=== PATIENT | male | born 1995 | race Caucasian/White ===

== ENCOUNTER 2024-09-20 19:34 | Emergency (ER) | payer BC ==
--- NOTE | 2024-09-20 20:43 | RAD REPORT ---
EXAMINATION: TWO VIEW CHEST XR CLINICAL INDICATION: Male, 28 years old. [facility] MAIN COUGH Bed Name: 13 TECHNIQUE: 2 view radiographs of the chest were performed. COMPARISON: No prior exam. FINDINGS: The lungs are well inflated and clear. No pneumothorax or sizable effusion. The heart is normal in si ze. Mediastinal contours are unremarkable. IMPRESSION: No acute or significant abnormalities.
[2024-09-20] MEDS ORDERED: ONDANSETRON 4 MG (ODT) TAB ONE (20:44)
[2024-09-20] MEDS ORDERED: IBUPROFEN 400 MG TAB ONE (20:44)
[2024-09-20] MEDS ORDERED: BENZONATATE 100 MG CAP PO ONE (20:44)
[2024-09-20 21:36] LABS: SARS-CoV-2 Antigen CONTROL BLUE LINE VIS/BG OK; SARS-CoV-2 Antigen Rapid Res Negative (Negative)
--- NOTE | 2024-09-20 21:46 | ER ---
Nurse's Notes [facility] Name: Gunnar Martinez Age: 28 yrs Sex: Male : 1995 Arrival Date: 09/20/2024 Time: 19:34 Bed 13 Private MD: Diagnosis: Influenza due to identified novel influenza A virus with other respiratory manifestations Presentation: 09/20 19:45 Chief complaint: Patient states: cough, fever, nausea and vomiting, and chest pain that cm10 is worse with inspiration onset this morning. Coronavirus screen: Client denies travel out of the [place] in the last 14 days. Ebola Screen: Patient denies travel to an Ebola-affected area in the 21 days before illness onset. No symptoms or risks identified at this time. Initial Sepsis Screen: Does the patient meet any 2 criteria? HR > 90 bpm. No. Patient's initial sepsis screen is negative. Does the patient have a suspected source of infection? No. Patient's initial sepsis screen is negative. Risk Assessment: Do you want to hurt yourself or someone else? Patient reports no desire to harm self or others. Onset of symptoms was September 20, 2024. 19:45 Method Of Arrival: Ambulatory cm10 19:45 Acuity: [place] 4 cm10 Triage Assessment: 19:47 General: Appears in no apparent distress. uncomfortable, Behavior is calm, cooperative. cm10 Neuro: No deficits noted. Level of Consciousness is awake, alert, obeys commands, Oriented to person, place, time, situation, Appropriate for age. Respiratory: No deficits noted. Airway is patent Respiratory effort is even, unlabored, Respiratory pattern is regular, symmetrical. Historical: - Allergies: 19:46 No Known Allergies; cm10 - Home Meds: 19:46 fenofibrate oral [Active]; cm10 - PMHx: 19:46 Herniated Disc; Elevated Triglycerides; Neuropathy; cm10 - Immunization history:: Adult Immunizations up to date. - Infectious Disease History:: Denies. - Social history:: Smoking status: Patient denies any tobacco usage or history of. Screenin:00 [facility] ED Fall Risk Assessment (Adult) History of falling in the last 3 months, mt4 including since admission No falls in past 3 months (0 pts) Confusion or Disorientation No (0 pts) Intoxicated or Sedated No (0 pts) Impaired Gait No (0 pts) Mobility Assist Device Used No (0 pt) Altered Elimination No (0 pt) Score/Fall Risk Level 0 - 2 = Low Risk. Abuse screen: Denies injuries from another. Nutritional screening: No deficits noted. Tuberculosis screening: No symptoms or risk factors identified. Exposure risk/Travel Screening: None identified. Assessment: 20:00 General: Appears in no apparent distress. comfortable, Behavior is calm, cooperative, mt4 appropriate for age. Pain: Denies pain. Neuro: Level of Consciousness is awake, alert, obeys commands, Oriented to person, place, time, situation, Sponsorship Coordinator are equal bilaterally Moves all extremities. Gait is steady, Speech is normal, Facial symmetry appears normal. Cardiovascular: Capillary refill < 3 seconds. Respiratory: Reports cough that is non-productive, Airway is patent Respiratory effort is even, unlabored, Respiratory pattern is regular, symmetrical. GI: Abdomen is non-distended. : Denies burning with urination. Musculoskeletal: Capillary refill < 3 seconds, Range of motion: intact in all extremities. 22:26 General: Appears in no apparent distress. comfortable, Behavior is calm, cooperative, mt4 appropriate for age. Respiratory: Airway is patent. Vital Signs: 19:45 BP 123 / 70; Pulse 111; Resp 18; Temp 99; Pulse Ox 100% ; Weight 117.93 kg; Height 6 cm10 ft. 5 in. ; Pain 7/10; 20:14 BP 118 / 70; Pulse 108; Resp 19; Temp 98.9(O); Pulse Ox 100% ; mt4 21:00 BP 109 / 62; Pulse 99; Resp 18; Pulse Ox 94% on R/A; mt4 22:25 BP 116 / 57; Pulse 90; Resp 16; Pulse Ox 98% on R/A; mt4 19:45 Body Mass Index 30.83 (117.93 kg, 195.58 cm) cm10 19:45 Pain Scale: Adult cm10 [place] Coma Score: 20:00 Eye Response: spontaneous(4). Motor Response: obeys commands(6). Verbal Response: mt4 oriented(5). Total: 15. ED Course: 19:36 Patient arrived in ED. jj6 19:45 Todd Smith PA is PHCP. cp 19:45 Keith Adames MD is Attending Physician. cp 19:46 Triage completed. cm10 19:47 Arm band placed on right wrist. Patient placed in an exam room, on a stretcher. cm10 20:00 No apparent distress. Resting quietly. mt4 20:00 Patient has correct armband on for positive identification. Bed in low position. Call mt4 light in reach. Side rails up X 1. Provided Education on: meds and labs . Client placed on continuous cardiac and pulse oximetry monitoring. NIBP monitoring applied. Door closed. Lights dimmed. Assisted to bathroom. 20:00 No provider procedures requiring assistance completed. Patient maintains SpO2 mt4 saturation greater than 95% on room air. 20:10 XRAY Chest Pa And Lat (2 Views) In Process Unspecified. EDMS 20:21 Claudia Swan, RN is Primary Nurse. mt4 22:25 Patient did not have IV access during this emergency room visit. mt4 Administered Medications: 20:51 Drug: Tessalon Perle PO 200 mg PO once Route: PO; mt4 21:56 Follow up: Response: No adverse reaction mt4 20:52 Drug: Ibuprofen PO 800 mg PO once Route: PO; mt4 21:57 Follow up: Response: No adverse reaction mt4 20:52 Drug: Ondansetron PO 4 mg PO once Route: PO; mt4 21:57 Follow up: Response: No adverse reaction mt4 21:57 Drug: Oseltamivir PO 75 mg PO once Route: PO; kj2 21:57 Follow up: Response: Medication administered at discharge. kj2 22:25 Follow up: Response: No adverse reaction mt4 Medication: 20:00 VIS not applicable for this client. mt4 Outcome: 21:46 Discharge ordered by . cp 22:25 Discharged to home ambulatory, mt4 22:25 Condition: good 22:25 Discharge instructions given to patient, Instructed on discharge instructions, follow up and referral plans. medication usage, Demonstrated understanding of instructions, follow-up care, medications, Prescriptions given X 4, 22:27 Patient left the ED. mt4 Signatures: Dispatcher [employer] EDMS Todd Smith PA PA cp Jeffries, Jennifer jj6 Kasandra Simpson RN RN cm10 Claudia Swan RN RN mt4 Trinidad Leon RN RN kj2
--- NOTE | 2024-09-20 21:46 | EDPHYS ---
Physician Documentation [facility] Name: Gunnar Martinez Age: 28 yrs Sex: Male : 1995 Arrival Date: 09/20/2024 Time: 19:34 Bed 13 Private MD: ED Physician Keith Adames HPI: 09/20 20:00 This 28 yrs old Male presents to ER via Ambulatory with complaints of Cough, Fever, cp Nausea/Vomiting, Chest Wall Pain. 20:00 The patient or guardian reports cough, that is intermittent, with productive sputum, cp flu symptoms, fever, body aches, chest pain with cough, nausea/vomiting. Onset: The symptoms/episode began/occurred this morning. Historical: - Allergies: 19:46 No Known Allergies; cm10 - Home Meds: 19:46 fenofibrate oral [Active]; cm10 - PMHx: 19:46 Herniated Disc; Elevated Triglycerides; Neuropathy; cm10 - Immunization history:: Adult Immunizations up to date. - Infectious Disease History:: Denies. - Social history:: Smoking status: Patient denies any tobacco usage or history of. ROS: 20:05 Constitutional: Positive for body aches, chills, fever, cp 20:05 Eyes: Negative for injury, pain, redness, and discharge, cp 20:05 Cardiovascular: Positive for chest pain, with cough, 20:05 Respiratory: Positive for cough, "sounds productive", 20:05 Abdomen/GI: Positive for nausea and vomiting, Negative for abdominal pain, diarrhea, constipation, 20:05 Neuro: Negative for altered mental status, 20:05 All other systems are negative, Exam: 20:10 Constitutional: The patient appears in no acute distress, alert, awake, cp non-diaphoretic, non-toxic, well developed, well nourished, 20:10 Head/Face: Normocephalic, atraumatic. cp 20:10 Eyes: Periorbital structures: appear normal, Conjunctiva: normal, no exudate, no injection, Lids and lashes: appear normal, bilaterally, 20:10 ENT: External ear(s): are unremarkable, Nose: is normal, Mouth: Lips: moist, Oral mucosa: moist, Posterior pharynx: Airway: no evidence of obstruction, patent, erythema, that is mild, exudate, is not appreciated, 20:10 Neck: ROM/movement: is normal, is supple, no meningismus, no nuchal rigidity, 20:10 Chest/axilla: Inspection: normal, 20:10 Cardiovascular: Rate: tachycardic, Rhythm: regular, 20:10 Respiratory: the patient does not display signs of respiratory distress, Respirations: normal, no use of accessory muscles, no retractions, labored breathing, is not present, Breath sounds: are clear throughout, no decreased breath sounds, no stridor, no wheezing, 20:10 Abdomen/GI: Inspection: abdomen appears normal, Palpation: abdomen is soft and non-tender, in all quadrants, 20:10 Skin: no rash present. Vital Signs: 19:45 BP 123 / 70; Pulse 111; Resp 18; Temp 99; Pulse Ox 100% ; Weight 117.93 kg; Height 6 cm10 ft. 5 in. ; Pain 7/10; 20:14 BP 118 / 70; Pulse 108; Resp 19; Temp 98.9(O); Pulse Ox 100% ; mt4 21:00 BP 109 / 62; Pulse 99; Resp 18; Pulse Ox 94% on R/A; mt4 22:25 BP 116 / 57; Pulse 90; Resp 16; Pulse Ox 98% on R/A; mt4 19:45 Body Mass Index 30.83 (117.93 kg, 195.58 cm) cm10 19:45 Pain Scale: Adult cm10 [place] Coma Score: 20:00 Eye Response: spontaneous(4). Motor Response: obeys commands(6). Verbal Response: mt4 oriented(5). Total: 15. MDM: 19:45 Medical Screening Exam initiated cp 21:45 Data reviewed: vital signs, nurses notes, lab test result(s), radiologic studies, plain cp films, and as a result, I will discharge patient. 21:45 Differential Diagnosis: Bronchitis Influenza Otitis Media Pneumonia. I considered the cp following discharge prescriptions or medication management in the emergency department Medications were administered in the Emergency Department. See MAR. Independent interpretation of the following test(s) in the Emergency Department X-Ray: My interpretation is images of chest negative for focal pneumonia. Counseling: I had a detailed discussion with the patient and/or guardian regarding the historical points, exam findings, and any diagnostic results supporting the discharge/admit diagnosis, lab results, radiology results. Response to treatment: the patient's symptoms have markedly improved after treatment, and as a result, I will discharge patient. 09/20 19:53 Order name: SARS RAPID; Complete Time: 21:38 cp 09/20 19:53 Order name: Influenza Screen (a \\T\\ B); Complete Time: 21:38 cp 09/20 21:38 Interpretation: Reviewed. cp 09/20 19:53 Order name: Strep cp 09/20 21:39 Interpretation: Reviewed. cp 09/20 21:38 Order name: Throat Culture EDMS 09/20 19:53 Order name: XRAY Chest Pa And Lat (2 Views); Complete Time: 21:38 cp 09/20 21:38 Interpretation: Report reviewed. cp Administered Medications: 20:51 Drug: Tessalon Perle PO 200 mg PO once Route: PO; mt4 21:56 Follow up: Response: No adverse reaction mt4 20:52 Drug: Ibuprofen PO 800 mg PO once Route: PO; mt4 21:57 Follow up: Response: No adverse reaction mt4 20:52 Drug: Ondansetron PO 4 mg PO once Route: PO; mt4 21:57 Follow up: Response: No adverse reaction mt4 21:57 Drug: Oseltamivir PO 75 mg PO once Route: PO; kj2 21:57 Follow up: Response: Medication administered at discharge. kj2 22:25 Follow up: Response: No adverse reaction mt4 Disposition Summary: 09/20/24 21:46 Discharge Ordered Notes: Location: Home cp Condition: Fair cp Diagnosis - Influenza due to identified novel influenza A virus with other respiratory cp manifestations Followup: cp - With: Private Physician - When: 2 - 3 days - Reason: Worsening of condition Discharge Instructions: - Discharge Summary Sheet cp - Influenza, Adult cp Forms: - Medication Reconciliation Form cp - Antibiotic Education cp - Prescription Opioid Use cp - Patient Portal Instructions cp - Leadership Thank You Letter cp Prescriptions: - Bromfed DM 2-30-10 mg/5 mL Oral syrup - administer 10 milliliter ORAL route 4 times per day as needed for cold cp symptoms; 240 milliliter; Refills: 0, Product Selection Permitted - Ibuprofen 800 mg Oral Tablet - take 1 tablet ORAL route every 8 hours As needed take with food; 30 tablet; cp Refills: 0, Product Selection Permitted - Tamiflu 75 mg Oral Capsule - take 1 capsule ORAL route every 12 hours for 5 days; 10 capsule; Refills: 0, cp Product Selection Permitted - Zofran 4 mg Oral tablet - take 1 tablet ORAL route every 8 hours As needed; 20 tablet; Refills: 0, cp Product Selection Permitted Signatures: Dispatcher [employer] Todd Lopez PA PA cp Martinez, Clarissa RN RN cm10 Claudia Swan RN RN mt4 Trinidad Leon RN RN kj2 Corrections: (The following items were deleted from the chart) 09/21 20:29 20:28 Constitutional: Negative for cp cp
[2024-09-20] MEDS ORDERED: OSELTAMIVIR 75 MG CAP PO ONE (21:55)
[2024-09-20 22:33] VITALS: TEMP 98.9
[2024-09-20 22:35] VITALS: BP 116/57; O2SAT 98
== END 2024-09-20 22:27 | disposition home or self-care (01) ==
LOC: ER 19:34
DX: J09.X2 Influenza due to identified novel influenza A virus with other respiratory manifestations (principal); R05.9 Cough, unspecified; R11.2 Nausea with vomiting, unspecified; R07.89 Other chest pain; Z11.52 Encounter for screening for COVID-19
CPT/HCPCS: 87070; 36415; 87081; 87804 ×2; 71046; 99284; 87811; Q0162